=== PATIENT | male | born 1970 ===

== ENCOUNTER → 2024-02-27 | Outpatient (CLI) | payer MEDICARE ==
[2024-02-27 16:05] LABS: BILIRUBIN,URINE NEGATIVE (NEGATIVE); LEUKOCYTE ESTERASE ,URINE TRACE (NEGATIVE); NITRATE,URINE POSITIVE (NEGATIVE); UROBILINOGEN,URINE 0.2 E.U./dL (0.2)
[2024-02-27 16:12] LABS: BASOPHIL % 0.5 % (0.0-0.2); EOSINOPHIL # 0.2 10^3/uL (0.0-0.2); EOSINOPHIL % 2.4 % (0.0-5.0); HEMATOCRIT(ML) 35.4 % (37.0-53.0); HEMOGLOBIN 11.3 g/dL (13.9-16.3); LYMPHOCYTES # 1.39 10^3/uL1 (1.0-4.8); MEAN CORP HGB 36.3 pg (26-34); MEAN CORP HGB CONCENTRATION 31.9 g/dL (33-36.5); MEAN CORP VOLUME 113.8 fL (78-100); MONOCYTES # 0.4 10^3/uL (0.3-0.8); MONOCYTES % 6.5 % (5.0-12.0); NEUTROPHIL # 4.6 10^3/uL (1.8-7.7); NEUTROPHILS % 69.4 % (41.0-85.0); PLATELET COUNT 218 10^3/uL (150-400); RED BLOOD CELL 3.11 10^6/uL (4.50-5.90); RED CELL DISTRIBUTION WIDTH 13.3 % (11.5-14.5); WHITE BLOOD CELL 6.6 10^3/uL (4.5-11.0)
[2024-02-27 16:15] LABS: +ADD MANUAL DIFF(NO CHRG) NO
[2024-02-27 16:16] LABS: APPEARANCE,URINE CLOUDY; UA COLOR ORANGE
[2024-02-27 16:39] LABS: ALBUMIN(ML) 3.1 g/dL (3.4-5.0); ALBUMIN/GLOBULIN RATIO 1.033; BUN/CREATININE RATIO 19.69 (10.0-20.0); C-REACTIVE PROTEIN 0.63 mg/dL (0.00-5.00); CALCIUM 9.8 mg/dL (8.4-10.5); CARBON DIOXIDE 28.6 mmol/L (20.0-32); CREATININE SERUM 0.66 mg/dL (0.59-1.40); EST GFR, NON-AA 125.8 (>/=60); LDL/HDL RATIO 2.8; POTASSIUM 3.6 mmol/L (3.6-5.2)
== END | disposition home or self-care (01) ==
LOC: NPLAB 15:47
PROVIDERS: ATTEND Nurse Practitioner Family
DX: I10 Essential (primary) hypertension (principal); M51.34 Other intervertebral disc degeneration, thoracic region; M79.7 Fibromyalgia; R30.0 Dysuria; R00.0 Tachycardia, unspecified; Z79.899 Other long term (current) drug therapy
CPT/HCPCS: 36415; 80053; 80061; 81001; 83036; 84443; 85025; 85651; 86038; 86140; 87086